=== PATIENT | female | born 1945 | race Caucasian/White ===

== ENCOUNTER → 2017-07-27 | Outpatient (CLI) | payer OTHER ==
[~2017-07-27] MED LIST: ALEVE220 M1 PO; CALCIUM 500 +1 EAC5 PO; CELEBREX 200 M200 MG PO; FISH OIL 1,0001 EAC5 PO; FLAX SEED OIL1000 MG PO; HYDROCODON-ACE1 EAC5 PO; MULTIVITAMINS PO; RELAFEN500 MG PO; ZOCOR40 MG PO
== END ==
LOC: RAD 02:14
DX: Z12.31 Encounter for screening mammogram for malignant neoplasm of breast (principal)

== ENCOUNTER → 2018-08-21 | Outpatient (CLI) | payer OTHER | LOC: RAD 04:09 | DX: Z12.31 Encounter for screening mammogram for malignant neoplasm of breast (principal) ==

== ENCOUNTER → 2018-09-28 | Outpatient (CLI) | payer OTHER ==
[~2018-09-28] VITALS: Ht 162.6 cm; Wt 54.4 kg
[~2018-09-28] MED LIST changes: +ALENDRONATE SOD70 MG PO; +PRIVIGEN50 ML PO
--- NOTE | ~2018-09-28 | P ---
[facility] [place] [address] PROCEDURE REPORT Name: GAIL CORADO Room #: REG [facility].#: [id number] Admission: 09/28/18 ������������������ Attend Phys: Alex Cowart MD Discharge: ������������������ Date of : 47 Report #: [id number] THIS REPORT FOR: //name// CC: Alex Wells BRIEF HISTORY: The patient is a 73-year-old woman who was recently found to have Hemoccult positive stools and iron deficiency anemia. She has no GI complaints at this time. She has never seen any blood or vomited any blood. PREOPERATIVE DIAGNOSES: 1. Hemoccult positive stools. 2. Iron deficiency anemia. POSTOPERATIVE DIAGNOSES: 1. Grade A erosive esophagitis. 2. Erosive gastritis involving antrum and body. 3. Small hiatus hernia. MEDICATIONS: Deep sedation with propofol per anesthesia. SPECIMENS: 1. Small bowel biopsies to rule out celiac disease. 2. Biopsies of gastritis. ESTIMATED BLOOD LOSS: 3 mL. PROCEDURE: EGD with biopsy. FINDINGS: Prior to propofol sedation, the procedure of upper endoscopy was discussed with the patient as well as potential risks and its complications. She indicates she understands and desires to proceed. DESCRIPTION OF PROCEDURE: With the patient in left decubitus position, the Olympus video endoscope was inserted in the cervical esophagus under direct vision without difficulty. Examination of this organ through its entire length revealed normal esophageal mucosa down the squamocolumnar junction. The squamocolumnar junction was inspected and two erosions were seen consistent with grade A erosive esophagitis. No bleeding was seen. Melgoza mucosa was not seen. Intermittently, a small, less than 2 cm sliding type hiatus hernia was seen. The scope was advanced in the stomach, which was examined on end view as well as retroflexed views. There was a pattern of patchy erythema throughout the antrum of stomach, also in the distal body several were several linear erosions were seen. There were no ulcers or bleeding lesions. Vascular ectasias were not seen. Upon retroflexion, no mass lesions were seen in the proximal stomach. The small hiatus hernia was noted. The pylorus, duodenal [facility] [address] [place] [address] PROCEDURE REPORT Name: GAIL CORADO Room #: REG [facility].#: [id number] Admission: 09/28/18 ������������������ Attend Phys: Alex Cowart MD Discharge: ������������������ Date of : 47 Report #: [id number] bulb and postbulbar duodenal sweep were all inspected and noted to be unremarkable. At that point, scope was slowly withdrawn and careful circumferential views confirmed the above finding. Biopsies were obtained of the small bowel to evaluate for celiac disease and of the gastric mucosa to evaluate for H. pylori. CONDITION OF THE PATIENT UPON DISCHARGE: Following procedure from the patient was drowsy and prepared for colonoscopy. INSTRUCTIONS TO THE PATIENT AND FAMILY AT THE TIME OF DISCHARGE: She clearly has endoscopic evidence of esophagitis. We will have her take omeprazole 20 mg daily for about 6-8 weeks and then reduce to as tolerated. It is possible these lesions could be responsible for her Hemoccult positive stools and her iron deficiency anemia. However, we will proceed with colonoscopy at this time. ��������������������������������������������� ���������������������������������������� By: ��������������������������������������������� [id number] Alex Cowart MD /nt
--- NOTE | ~2018-09-28 | P ---
[facility] [place] [address] PROCEDURE REPORT Name: GAIL CORADO Room #: REG [facility].#: [id number] Admission: 09/28/18 ������������������ Attend Phys: Alex Cowart MD Discharge: ������������������ Date of : 47 Report #: [id number] THIS REPORT FOR: //name// CC: Alex Wells BRIEF HISTORY: The patient is a 73-year-old woman with recent findings of anemia and Hemoccult-positive stools. Her mother had colon cancer, but her mother was in her 90s when she was diagnosed with colon cancer. PREOPERATIVE DIAGNOSIS: Iron deficiency anemia. POSTOPERATIVE DIAGNOSES: 1. Ohvirpeo-db-ufjhhj left-sided diverticulosis coli. 2. Small internal hemorrhoids. MEDICATIONS: Deep sedation with propofol per anesthesia. SPECIMEN: None. ESTIMATED BLOOD LOSS: None. PROCEDURE: Colonoscopy to cecum and terminal ileum. FINDINGS: Prior to propofol sedation, procedure of colonoscopy was discussed with the patient as well as potential risks and its complications. She indicates she understands and desires to proceed. DESCRIPTION OF PROCEDURE: With the patient in left lateral decubitus position, digital examination was completed, which revealed no abnormalities. Subsequently, the Olympus video colonoscope was introduced in the rectum, advanced under direct vision to the cecum. Done with minimal difficulty. The cecum was identified by the ileocecal valve and the appendiceal orifice. I was able to visualize the distal segment of the terminal ileum. There was no evidence of ulcers, erosions or bleeding lesions in the ileum. At that point, the scope was slowly withdrawn and careful circumferential views obtained including retroflexion of the scope in the ascending colon. Upon slow withdrawal of the scope, the prep was noted to be good. The mucosa was within normal limits, normal vascular pattern, normal light reflex. As we withdrew the scope, no neoplastic lesions were seen on today's examination. However, she did have a few scattered diverticula in the hepatic flexure and she was noted to have moderately severe diverticular disease of the sigmoid colon without endoscopic evidence of diverticulitis. No bleeding lesions were seen. There was no evidence of vascular ectasias. The colonic mucosa was normal throughout. Scope was withdrawn in the rectum. No abnormalities were seen. Upon retroflexion, a couple of very small internal hemorrhoids were seen. Scope was [facility] [address] [place] [address] PROCEDURE REPORT Name: GAIL CORADO ANN [facility] [id number] Admission: 09/28/18 ������������������ Attend Phys: Alex Cowart MD Discharge: ������������������ Date of : 47 Report #: [id number] withdrawn. The patient tolerated the procedure well. CONDITION OF THE PATIENT UPON DISCHARGE: Following procedure, the patient drowsy, aroused, conversant and will be discharged home when fully ambulatory. INSTRUCTIONS TO THE PATIENT AND FAMILY AT THE TIME OF DISCHARGE: No neoplastic lesions or bleeding lesions were seen. Please see upper endoscopy report for additional details. Obvious bleeding site or blood loss site was not identified on the colonoscopy. However, she could have had bleeding from her gastric erosions or esophagitis. With regards to her colon, suggest she return in 10 years for a screening colonoscopy. She will otherwise return to the care of Dr. Jono Wells. Her last colonoscopy was in 04/2014. Withdrawal time from cecum was 11 minutes and 4 seconds. ��������������������������������������������� ���������������������������������������� By: ��������������������������������������������� [id number] Alex Cowart MD /nt
--- NOTE | 2018-09-29 16:05 | PATH ---
[facility] [place] [address] PATHOLOGY RPT PROCEDURE Name: BECKY CORADO Room #: REG [facility] Paul.#: [id number] ������������������ Admission: 09/28/18 ������������������ Date of : 47 Discharge: Report #: [id number] Path Case #: [id number] [facility] Accession Number: [id number] . 01 Material submitted: . PART A: small bowel - BX SMALL BOWEL RE:IRON DEF. ANEMIA R/O CELIAC DZ PART B: stomach - BX GASTRITIS R/O H PYLORI . 01 Clinical history: . Pre-OP DX: Anemia, blood in stool Post-OP DX: Esophagitis, gastritis, diverticulosis, hemorrhoid . 02 Diagnosis: A. Small bowel mucosa, small bowel, rule out celiac disease, endoscopic biopsy: - No diagnostic abnormalities present. - Negative for villous blunting or increase in intraepithelial lymphocytes. . B. Gastric mucosa, gastritis, rule out H. pylori, endoscopic biopsy: - Mild chronic inflammation. - Negative for intestinal metaplasia or atrophy. - Negative for Helicobacter pylori (properly controlled immunohistochemical stain performed). (IUV:pit 09/29/2018) QTP/09/29/2018 . 02 Electronically signed: . Shannon Mandel MD, Pathologist NPI- [id number] . 01 Gross description: . A. Received in formalin labeled "CoradoBecky, small bowel BX re: Iron deficiency anemia," are 5 segments of kincaid soft tissue measuring 0.9 x 0.8 x 0.2 cm in aggregate dimensions and ranging from 0.3 to 0.5 cm in maximum dimension. The specimen is submitted entirely in cassette A1. . B. Received in formalin labeled "Becky Corado, BX gastritis, rule out H. pylori," are 4 segments of kincaid soft tissue measuring 1.6 x 0.8 x 0.2 cm in aggregate dimensions and ranging from 0.3 to 0.7 cm in maximum dimension. The specimen is submitted entirely in cassette B1. (TSD; 09/28/2018) TOB/TOB . 02 Pathologist provided ICD-10: K29.50 . 02 [place] [address] PATHOLOGY RPT PROCEDURE Name: BECKY CORADO ANN Room #: REG [facility]#: [id number] ������������������ Admission: 09/28/18 ������������������ Date of : 47 Discharge: Report #: [id number] Path Case #: [id number] [facility] . [id number], [id number], [id number] Specimen Comment: A courtesy copy of this report has been sent to Specimen Comment: [phone], . Specimen Comment: Report sent to / DR MCCULLOUGH Performed at: [address], [place] [id number] MD Santos Ware MD Phone: [phone] Performed at: [address] [id number] MD Shannon Mandel MD Phone: [phone]
== END ==
LOC: GI 08:57
DX: D50.9 Iron deficiency anemia, unspecified (principal); K29.50 Unspecified chronic gastritis without bleeding; K57.30 Diverticulosis of large intestine without perforation or abscess without bleeding; K64.8 Other hemorrhoids; Z80.0 Family history of malignant neoplasm of digestive organs; K44.9 Diaphragmatic hernia without obstruction or gangrene; E78.5 Hyperlipidemia, unspecified; Z90.710 Acquired absence of both cervix and uterus; Z98.890 Other specified postprocedural states
CPT/HCPCS: 62110; 62900

== ENCOUNTER → 2019-08-24 | Outpatient (CLI) | payer OTHER | LOC: BC 08:19 | DX: Z12.31 Encounter for screening mammogram for malignant neoplasm of breast (principal) ==

== ENCOUNTER → 2020-09-04 | Outpatient (CLI) | payer OTHER | LOC: BC 14:36 | PROVIDERS: ATTEND Family Medicine | DX: Z12.31 Encounter for screening mammogram for malignant neoplasm of breast (principal) ==

== ENCOUNTER → 2020-09-19 | Outpatient (CLI) | payer OTHER | LOC: NUC 13:16 | PROVIDERS: ATTEND Family Medicine | DX: M85.88 Other specified disorders of bone density and structure, other site (principal) ==